=== PATIENT | male | born 1965 | race Caucasian/White ===

== ENCOUNTER → 2021-08-13 | Outpatient (CLI) | payer OTHER ==
[~2021-08-13] MED LIST: CYCLOBENZAPRINE10 MG PO
[2021-08-13 14:47] LABS: HEMOGLOBIN 13.8 gm/dl (14.0-17.5); RED BLOOD COUNT 5.13 M/UL (4.20-5.50)
[2021-08-13 15:44] LABS: BUN/CREATININE RATIO 14 (0-10)
== END ==
LOC: LAB 11:46
PROVIDERS: Nurse Practitioner Family
DX: E78.5 Hyperlipidemia, unspecified (principal); E55.9 Vitamin D deficiency, unspecified; R68.89 Other general symptoms and signs; R79.89 Other specified abnormal findings of blood chemistry; R53.83 Other fatigue; R73.09 Other abnormal glucose
CPT/HCPCS: 36415; 80053; 80061; 82728; 83036; 83540; 83550; 84443; 85025

== ENCOUNTER 2022-05-13 17:06 | Emergency (ER) | payer OTHER ==
[2022-05-13] MEDS ORDERED: HYDROCODON-ACE1 EAC4 PO (20:52)
== END 2022-05-13 21:10 | disposition home or self-care (01) ==
LOC: ER1 17:06
DX: S52.571A Other intraarticular fracture of lower end of right radius, initial encounter for closed fracture (principal); S52.611A Displaced fracture of right ulna styloid process, initial encounter for closed fracture; I10 Essential (primary) hypertension; J45.909 Unspecified asthma, uncomplicated; E11.9 Type 2 diabetes mellitus without complications; Z88.0 Allergy status to penicillin; Z88.8 Allergy status to other drugs, medicaments and biological substances; W19.XXXA Unspecified fall, initial encounter; Y92.009 Unspecified place in unspecified non-institutional (private) residence as the place of occurrence of the external cause
CPT/HCPCS: 29125; 73090; 73100; 99283